=== PATIENT | female | born 1930 | race Caucasian/White ===

== ENCOUNTER 2016-08-20 10:55 | Outpatient (CLI) | payer MEDICARE ==
--- NOTE | 2016-08-21 14:16 | Mammography Report ---
DIGITAL SCREENING MAMMOGRAM: 08/20/2016 CLINICAL INDICATION: An 85-year-old, for screening, history of benign left breast biopsy. COMPARISON: 06/2015, 12/2012, 08/2010, 06/2009, 07/2007. TECHNIQUE: Routine CC and MLO projections were obtained of the breasts. FINDINGS: The breasts again demonstrate scattered fibroglandular densities bilaterally. Coarse and p unctate, typically benign calcifications are present. Postbiopsy changes in the left breast are stabl e. No suspicious masses, clustered microcalcifications, or regions of architectural distortion are id entified. IMPRESSION: BENIGN FINDINGS. RECOMMENDATION: ROUTINE ANNUAL SCREENING UNLESS OTHERWISE CLINICALLY INDICATED. BIRADS CATEGORY 2-BENIGN FINDINGS. STANDARD QUALIFYING STATEMENTS 1. This examination was reviewed with the aid of Computer-Aided Detection (CAD). 2. A negative or benign imaging report should not delay biopsy if clinically suspicious findings are present. Consider surgical consultation if warranted. More than 5% of cancers are not identified by i maging. 3. Dense breasts may obscure an underlying neoplasm. JOB #: [id number] EXT JOB #:[id number]
== END 2016-08-20 10:56 | disposition home or self-care (01) ==
LOC: DI.N 10:55
PROVIDERS: ATTEND Internal Medicine
DX: Z12.31 Encounter for screening mammogram for malignant neoplasm of breast (principal)
CPT/HCPCS: 77067

== ENCOUNTER 2017-02-24 09:08 | Outpatient (CLI) | payer MEDICARE ==
--- NOTE | 2017-02-25 11:12 | Ultrasound Report ---
THYROID ULTRASOUND: 02/24/2017 HISTORY: Hypothyroidism. TECHNIQUE: Real-time scanning by the summer camp counselor with saved static images reviewed. RIGHT LOBE: 3.6 x 0.8 x 1.4 cm, volume 2.1 mL. LEFT LOBE: 3.7 x 1.0 x 1.4 cm, volume 2.7 mL. THYROID ISTHMUS: 0.27 cm. Both lobes of the thyroid have an irregular lobulated contour and extremely heterogeneous echotexture without discrete cystic or solid mass. A few coarse septations are present. No definite solid mass is seen. IMPRESSION: SMALL IRREGULAR COARSE-APPEARING THYROID SUGGESTS CHRONIC INFLAMMATORY DISEASE OF THE TH YROID SUCH MAI'S DISEASE. JOB #: [id number] EXT JOB #:[id number]
--- NOTE | 2017-02-25 11:43 | Ultrasound Report ---
AORTA SCREENING ULTRASOUND: 02/24/2017 HISTORY: Hypertension. Real-time scanning by the senior control systems engineer with saved static images reviewed. Aortic measurements in centimeters as follows: PROXIMAL SAGITTAL: 2.1 MID TRANSVERSE: 1.7 x 1.7 DISTAL TRANSVERSE: 1.7 x 1.9 No evidence of aneurysm. Calcified atherosclerotic plaque is present. ILIAC ARTERIES: Right iliac 1.0 x 0.9 cm, left 1.0 x 0.8 cm. IMPRESSION: NO EVIDENCE OF ABDOMINAL AORTIC ANEURYSM. JOB #: [id number] EXT JOB #:[id number]
== END 2017-02-24 09:09 | disposition home or self-care (01) ==
LOC: DI 09:08
PROVIDERS: ATTEND Internal Medicine
DX: E03.9 Hypothyroidism, unspecified (principal); I10 Essential (primary) hypertension
CPT/HCPCS: 76536; 76706

== ENCOUNTER 2017-11-19 09:48 | Outpatient (CLI) | payer MEDICARE ==
[2017-11-19 12:16] LABS: CALCIUM 9.5 mg/dL (8.5-10.3); CREATININE 1.5 mg/dL (0.4-1.0); PHOSPHORUS 3.7 mg/dL (2.5-4.6)
[2017-11-19 12:25] LABS: HGB - HEMOGLOBIN 12.4 g/dL (12.0-16.0); MEAN CORPUSCULAR HEMOGLOBIN 29.5 pg (27.0-31.0); MEAN CORPUSCULAR HGB CONC 33.7 g/dL (32.0-36.0); MEAN CORPUSCULAR VOLUME 87.6 fL (81.0-99.0); MEAN PLATELET VOLUME 8.5 fL (7.9-10.8); RED BLOOD COUNT 4.19 10^6/uL (4.20-5.40); RED CELL DISTRIBUTION WIDTH 13.9 % (12.0-15.0); WHITE BLOOD COUNT 4.2 x10^3/uL (4.8-10.8)
[2017-11-19 12:37] LABS: MICROALBUM/CREATININE RATIO,UR 33.3 ug/mg (<30.0); MICROALBUMIN,URINE 2.7 mg/dL (0-300.0)
== END 2017-11-19 09:49 | disposition home or self-care (01) ==
LOC: LAB.N 09:48
PROVIDERS: ATTEND Internal Medicine Nephrology
DX: N05.9 Unspecified nephritic syndrome with unspecified morphologic changes (principal); E83.50 Unspecified disorder of calcium metabolism; D70.9 Neutropenia, unspecified; D63.1 Anemia in chronic kidney disease; E83.30 Disorder of phosphorus metabolism, unspecified; R80.9 Proteinuria, unspecified
CPT/HCPCS: 36415; 80048; 82043; 82570; 84100; 85027